=== PATIENT | male | born 1955 | race Asian ===

== ENCOUNTER 2019-12-10 16:58 | Outpatient (CLI) | payer BC ==
[2019-12-10 17:36] LABS: POTASSIUM 4.2 mmol/L (3.6-5.2)
== END 2019-12-10 22:44 | disposition home or self-care (01) ==
LOC: LAB 16:58
PROVIDERS: Internal Medicine Cardiovascular Disease
DX: I10 Essential (primary) hypertension (principal)
CPT/HCPCS: 36415; 80048

== ENCOUNTER 2020-05-25 16:06 | Outpatient (CLI) | payer BC ==
[2020-05-25 17:49] LABS: POTASSIUM 4.1 mmol/L (3.6-5.2)
== END 2020-05-25 20:29 | disposition home or self-care (01) ==
LOC: LAB 16:06
PROVIDERS: Internal Medicine Cardiovascular Disease
DX: I50.9 Heart failure, unspecified (principal)
CPT/HCPCS: 36415; 80048

== ENCOUNTER 2020-08-12 07:51 | Outpatient (CLI) | payer BC, OTHER | END 2020-08-13 03:32 | disposition home or self-care (01) | LOC: LAB 07:51 | DX: Z01.818 Encounter for other preprocedural examination (principal) ==